=== PATIENT | male | born 1995 | race Caucasian/White ===

== ENCOUNTER 2017-10-20 23:05 | Emergency (ER) | payer OTHER ==
[~2017-10-20] VITALS: Ht 182.9 cm; Wt 82.4 kg
[2017-10-20 23:24] VITALS: Ht 182.9 cm; Wt 82.4 kg
[2017-10-21] MEDS ORDERED: KETOROLAC 30 MG INJ IV STA (00:23)
--- NOTE | 2017-10-21 00:28 | ERD ---
ER Documentation Chief Complaint Chief Complaint pt reports L hand swelling for 2 days HPI This 21-year-old male presents here to emergency department for complaints of left hand pain and swelling for 2 days, patient acquired a laceration wound on the left fourth finger, did not clean it afterwards, now has been having redness and swelling of the left hand, patient's complaint of pain throbbing pain, 8/10 scale, as was upon movement, still able to do full range of motion of the event without any restriction per patient. Patient did not take any medications for pain. Patient denies any fever chills. Patient denies any numbness or tingling. ROS All systems reviewed and are negative except as per history of present illness. Medications Home Meds Reported Medications [none] Unknown Strength No Conflict Check 10/21/17 Allergies Allergies: Coded Allergies: No Known Allergy (Unverified , 10/20/17) PMhx/Soc Unknown last tdap Medical and Surgical Hx: pt denies Medical Hx, pt denies Surgical Hx Hx Alcohol Use: Yes Hx Substance Use: Yes (MARIJUANA) Hx Tobacco Use: Yes Smoking Status: Current every day smoker FmHx Family History: No coronary disease, No diabetes, No other Physical Exam Vitals Vital Signs Date Time Temp Pulse Resp B/P Pulse Ox O2 Delivery O2 Flow Rate FiO2 10/20/17 23:24 99.1 106 16 126/80 99 Physical Exam GENERAL: The patient is well developed and appropriate for usual state of health, in no apparent distress. CHEST: Clear to auscultation bilaterally. There are no rales, wheezes or rhonchi. HEART: Regular rate and rhythm. No murmurs, clicks, rubs or gallops. No S3 or S4. ABDOMEN: Soft, nontender and nondistended. Good bowel sounds. No rebound or guarding. No gross peritonitis. No gross organomegaly or masses. No Mejia sign or McBurney point tenderness. BACK: No midline or flank tenderness. EXTREMITIES: Equal pulses bilaterally. There is no peripheral clubbing, cyanosis or edema. No focal swelling or erythema. Full range of motion. Grossly neurovascularly intact. NEURO: Alert and oriented. Cranial nerves 2-12 intact. Motor strength in all 4 extremities with 5/5 strength. Sensation grossly intact. Normal speech and gait. SKIN: Noted 0.5 cm superficial laceration wound noted in the left fourth finger , no joint involvement noted. Noted left hand, dorsal aspect of the right and swollen induration noted, no fluctuance noted. There is no apparent ecchymosis or petechia. The skin is warm and dry. HEMATOLOGIC AND LYMPHATIC: There is no evidence of excessive bruising or lymphedema. No gross cervical, axillary, or inguinal lymphadenopathy. Results 24 hrs Current Medications Medications (Trade) Dose Ordered Sig/Sylvia Route PRN Reason Start Time Stop Time Status Last Admin Dose Admin Diphtheria/ Tetanus/Acell Pertussis 0.5 ml 0.5 ml ONCE ONCE IM* 10/21/17 00:30 10/21/17 00:31 DC Clindamycin HCl/ Dextrose 50 ml @ 50 mls/hr ONCE IVPB 10/21/17 00:30 10/21/17 01:29 DC Sodium Chloride (NS) 1,000 ml @ 1,000 mls/hr Q1H ONCE IV 10/21/17 00:30 10/21/17 01:29 DC Ketorolac Tromethamine (Toradol) 30 mg ONCE STAT IV 10/21/17 00:23 10/21/17 00:25 DC Tdap was given to prevent tetanus. Patient tolerated medication well. Patient was given medication for pain here in emergency department, after treatment, patient verbalized feeling much better. Patient's pain is improved. Normal saline IV bolus was given here in emergency department for rehydration, patient tolerated IV fluids. Clindamycin IV was given here in the emergency department. PROCEDURE: X-ray left hand. CLINICAL INDICATION: Left hand pain and swelling. TECHNIQUE: 3 views left hand. COMPARISON: None FINDINGS: Soft tissue swelling over the dorsum of the hand. No acute fracture or dislocation. IMPRESSION: Soft tissue swelling, without acute fracture. RPTAT: [facility] Physician Leonard Date Time Electronically viewed and signed by Physician Leonard on 10/21/2017 01:20 RS/ CC: BANG HANSEN [employer] Procedures/MDM Medical Decision Making: Patient's pain is most likely consistent with a cellulitis which is most likely caused by the laceration wound is actually healing well on the left fourth finger. There is no suspicion for neurovascular compromise. Patient has intact sensation and circulation of the affected extremity. There is low suspicion for septic arthritis. Radiology exams of the affected area does not show any fracture or dislocation. Disposition: Home. Patient is given prescription for ibuprofen for pain, clindamycin. Patient was advised to elevate the affected area and apply ice on affected area. Patient was advised that if symptoms are worse, numbness, tingling, high fever, unable to move joint, worsening symptoms, to return to emergency department immediately. Otherwise, patient is advised to follow up with the primary care doctor here in the emergency department in 24 hours for reevaluation of symptoms, sooner if symptoms get worst. Disclaimer: Inadvertent spelling and grammatical errors are likely due to EHR/ dictation software use and do not reflect on the overall quality of patient care. Also, please note that the electronic time recorded on this note does not necessarily reflect the actual time of the patient encounter. Departure Diagnosis: Primary Impression: Cellulitis Site of cellulitis: extremity Site of cellulitis of extremity: upper extremity Laterality: right Qualified Code: L03.113 - Cellulitis of right upper extremity Condition: Stable Patient Instructions: Cellulitis Additional Instructions: . Patient is given prescription for ibuprofen for pain, clindamycin. Patient was advised to elevate the affected area and apply ice on affected area. Patient was advised that if symptoms are worse, numbness, tingling, high fever, unable to move joint, worsening symptoms, to return to emergency department immediately. Otherwise, patient is advised to follow up with the primary care doctor here in the emergency department in 24 hours for reevaluation of symptoms , sooner if symptoms get worst. BANG HANSEN NP Oct 21, 2017 00:28
[2017-10-21] MEDS ORDERED: SOD CHLORIDE 0.9% 1,000 ML IV ONE (00:30)
[2017-10-21] MEDS ORDERED: CLINDAMYCIN 900 MG/D5W (PMX) 50 ML IVPB SCH (00:30)
[2017-10-21] MEDS ORDERED: DIPHTH/TET/ACEL PERTUSS (ADULT) 0.5 ML VIAL IM* ONE (00:30)
--- NOTE | 2017-10-21 01:21 | RADRPT ---
PROCEDURE: X-ray left hand. CLINICAL INDICATION: Left hand pain and swelling. TECHNIQUE: 3 views left hand. COMPARISON: None FINDINGS: Soft tissue swelling over the dorsum of the hand. No acute fracture or dislocation. IMPRESSION: Soft tissue swelling, without acute fracture. RPTAT: [facility] Physician Leonard Date Time Electronically viewed and signed by Physician Leonard on 10/21/2017 01:20 RS/
[2017-10-21] MEDS ORDERED: CLIN-73 PO (01:38)
[2017-10-21] MEDS ORDERED: IBUP-1542 PO (01:38)
[2017-10-21 03:34] VITALS: BP 140/7; PULSE 112; RESP 16; TEMP 98.6
== END 2017-10-21 03:59 | disposition home or self-care (01) ==
LOC: FTE 23:05
DX: L03.114 Cellulitis of left upper limb (principal); F17.210 Nicotine dependence, cigarettes, uncomplicated; Z23 Encounter for immunization
CPT/HCPCS: 73130; 90471; 96365; 96375; J1885; J7030; Z7502; Z7610; 90715